=== PATIENT | male | born 2005 | race Caucasian/White ===

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

== ENCOUNTER 2024-06-27 19:57 | Emergency (ER) | payer OTHER ==
--- NOTE | 2024-06-27 20:42 | ED ---
General Adult HPI - General Source: EMS, RN notes reviewed, Caregiver Mode of arrival: wheelchair Limitations: altered mental status <Darleen Samano - Last Filed: 06/28/24 04:05> <Jarred Morel - Last Filed: 06/28/24 10:10> - General Chief complaint: Psychiatric Symptoms Stated complaint: Behavioral Health Time Seen by Provider: 06/27/24 20:40 - History of Present Illness Initial comments: 18-year-old male brought in by EMS with a chief complaint of agitation/altered mental status. Patient has a past medical history significant of autism, schizophrenia and seizure disorder. Majority of HPI and past medical history obtained from [facility] caregiver mailroom supervisor. They state for the past couple of days patient has been extremely excitable and aggressive. They state he has been laughing and jumping and attempting to run out of the facility. They state they have attempted to give as needed medication but patient refuses to take it. They have not been able to redirect patient and he is now been attempting to hurt himself including bleeding, headbutting staff and banging his head on a win mayte and attempts to leave the facility which brought him to the ER today. (Darleen Samano) - Related Data Home Medications Medication Instructions Recorded Confirmed Multivitamins, Thera [Multivitamin 1 tab PO DAILY 02/07/16 12/09/23 (formulary)] Acetaminophen Tab [Tylenol] 500 - 1,000 mg PO Q6HR PRN 11/28/23 12/09/23 Atorvastatin [Lipitor] 20 mg PO HS 11/28/23 12/09/23 Benzoyl Peroxide [Cerave Acne] 1 applic TOPICAL BID 11/28/23 12/09/23 Cannabidiol (Cbd) [Epidiolex] 300 mg PO BID 11/28/23 12/09/23 Cholecalciferol [Vitamin D3 (25 50 mcg PO DAILY 11/28/23 12/09/23 Mcg = 1000 Iu)] Levothyroxine Sodium [Synthroid] 112 mcg PO DAILY 11/28/23 12/09/23 Magnesium Hydroxide [Milk of 2,400 mg PO ONCE PRN 11/28/23 12/09/23 Magnesia] Melatonin 10 mg PO HS 11/28/23 12/09/23 Midazolam [Nayzilam] 5 mg NASAL DIRECTED PRN 11/28/23 12/09/23 Potassium Chloride ER [K-Dur 10] 10 meq PO DAILY 11/28/23 12/09/23 polyethylene glycoL 3350 [Miralax] 17 gm PO DAILY 11/28/23 12/09/23 Docusate [Colace] 100 mg PO BID 12/09/23 12/09/23 Na Phos,M-B/Na Phos,Di-Ba [Fleet 133 ml RECTAL ONCE PRN 12/09/23 12/09/23 Adult] OLANZapine ODT [ZyPREXA ZYDIS] 10 mg PO BID PRN 12/09/23 12/09/23 Paliperidone [Paliperidone ER] 12 mg PO DAILY 12/09/23 12/09/23 Propranolol [Inderal] 20 mg PO BID 12/09/23 12/09/23 guaiFENesin-DM 600/30MG [Mucinex 1 tab PO Q12H PRN 12/09/23 12/09/23 Dm] Previous Rx's Medication Instructions Recorded Lacosamide [Vimpat] 50 mg PO BID #60 tab 11/30/23 Lacosamide [Vimpat] 200 mg PO BID #60 tab 11/30/23 OLANZapine [ZyPREXA] 30 mg PO HS #0 11/30/23 lamoTRIgine [LaMICtal] 100 mg PO DAILY #30 tab 11/30/23 LORazepam [Ativan] 0.5 mg PO TID #0 12/02/23 Allergies Allergy/AdvReac Type Severity Reaction Status Date / Time Sulfa (Sulfonamide Allergy LOWERS WBC Verified 06/27/24 20:20 Antibiotics) lorazepam [From Ativan] AdvReac Severe see Verified 06/27/24 20:20 comments MOTHBALLS Allergy Unknown Uncoded 06/27/24 20:20 Review of Systems ROS Other: All systems not noted in ROS Statement are negative. <Darleen Samano - Last Filed: 06/28/24 04:05> ROS Other: All systems not noted in ROS Statement are negative. <Jarred Morel - Last Filed: 06/28/24 10:10> ROS Statement: Those systems with pertinent positive or pertinent negative responses have been documented in the HPI. Past Medical History Past Medical History: Seizure Disorder Additional Past Medical History / Comment(s): austic, white cell disorder - g6PD, seizure History of Any Multi-Drug Resistant Organisms: None Reported Past Surgical History: Cholecystectomy Additional Past Surgical History / Comment(s): DENTAL SURGERY Past Anesthesia/Blood Transfusion Reactions: No Reported Reaction Past Psychological History: ADD/ADHD, Schizophrenia Smoking Status: Never smoker Past Alcohol Use History: None Reported Past Drug Use History: None Reported <Darleen Samano - Last Filed: 06/28/24 04:05> General Exam Limitations: altered mental status General appearance: alert, in no apparent distress Head exam: Present: atraumatic, normocephalic, normal inspection Eye exam: Present: normal appearance, PERRL, EOMI. Absent: scleral icterus, conjunctival injection, periorbital swelling Pupils: Present: normal accommodation ENT exam: Present: normal exam, normal oropharynx, mucous membranes moist Neck exam: Present: normal inspection. Absent: tenderness, meningismus, lymphadenopathy Respiratory exam: Present: normal lung sounds bilaterally. Absent: respiratory distress, wheezes, rales, rhonchi, stridor Cardiovascular Exam: Present: regular rate, normal rhythm, normal heart sounds. Absent: systolic murmur, diastolic murmur, rubs, gallop, clicks GI/Abdominal exam: Present: soft, normal bowel sounds. Absent: distended, tenderness, guarding, rebound, rigid Extremities exam: Present: normal inspection, full ROM, normal capillary refill. Absent: tenderness, pedal edema, joint swelling, calf tenderness Neurological exam: Present: alert Skin exam: Present: warm, dry, intact, normal color. Absent: rash <Darleen Samano - Last Filed: 06/28/24 04:05> Course Vital Signs 06/27/24 06/27/24 06/28/24 20:00 20:15 06:26 Pulse Rate 100 104 H Respiratory 17 16 16 Rate Blood Pressure 123/69 126/72 128/78 O2 Sat by Pulse 98 95 96 Oximetry Medical Decision Making - Lab Data Result diagrams: 06/27/24 21:28 06/27/24 21:28 - Radiology Data Radiology results: report reviewed, image reviewed <Darleen Samano - Last Filed: 06/28/24 04:05> - Lab Data Result diagrams: 06/27/24 21:28 06/27/24 21:28 <Jarred Morel - Last Filed: 06/28/24 10:10> - Medical Decision Making Was pt. sent in by a medical professional or institution (EBONIE Cormier, HOSPITAL LABORATORY TECHNICIAN, urgent care, hospital, or alf...) When possible be specific @ -alf for evaluation of agression and head injury. Did you speak to anyone other than the patient for history (EMS, parent, family, police, friend...)? What history was obtained from this source @ -Yes [facility] provided HPI in its entirety. Did you review nursing and triage notes (agree or disagree)? Why? @ -I reviewed and agree with nursing and triage notes Were old charts reviewed (outside hosp., previous admission, EMS record, old EKG, old radiological studies, urgent care reports/EKG's, alf records)? Report findings @ -No old charts were reviewed Differential Diagnosis (chest pain, altered mental status, abdominal pain women, abdominal pain men, vaginal bleeding, weakness, fever, dyspnea, syncope, headache, dizziness, GI bleed, back pain, seizure, CVA, palpatations, mental health, musculoskeletal)? @ -Differential Altered Mental Status: Hypoglycemia, DKA, hypercapnia, ETOH, overdose, CO poisoning, trauma, myxedema coma, HTN encephalopathy, infection, encephalitis, psychosis, intercranial hemorrhage, hepatic encephalopathy, meningitis, CVA, this is not meant to be an all-inclusive list EKG interpreted by me (3pts min.). @ -None X-rays interpreted by me (1pt min.). @ -None done CT interpreted by me (1pt min.). @ -CT brain negative for acute intracranial process, fractures or dislocations. U/S interpreted by me (1pt. min.). @ -None done What testing was considered but not performed or refused? (CT, X-rays, U/S, labs)? Why? @ -None What meds were considered but not given or refused? Why? @ -None Did you discuss the management of the patient with other professionals (professionals i.e. EBONIE Cormier, HOSPITAL LABORATORY TECHNICIAN, lab, RT, psych nurse, social media manager, student, teacher, control officer manager, case management associate)? Give summary @ -No Was smoking cessation discussed for >3mins.? @ -No Was critical care preformed (if so, how long)? @ -No Were there social determinants of health that impacted care today? How? (Homelessness, low income, unemployed, alcoholism, drug addiction, transportation, low edu. Level, literacy, decrease access to med. care, custodial, rehab)? @ -Patient currently residing at [facility] Was there de-escalation of care discussed even if they declined (Discuss DNR or withdrawal of care, Hospice)? DNR status @ -No What co-morbidities impacted this encounter? (DM, HTN, Smoking, COPD, CAD, Cancer, CVA, ARF, Chemo, Hep., AIDS, mental health diagnosis, sleep apnea, morbid obesity)? @ -Autism/schizophrenia Was patient admitted / discharged? Hospital course, mention meds given and route, prescriptions, significant lab abnormalities, going to OR and other pertinent info. @ -18-year-old male presented to ER via EMS with a chief complaint of altered mental status. HPI is provided entirely by group marketing vp. History and physical exam completed. Vitals stable. Patient in no signs of acute distress and nontoxic-appearing. Exam unremarkable. CT brain performed due to [facility] staff reporting patient was banging his head against windows today. CT is negative for acute process. Laboratory studies obtained remarkable for a macrocytic anemia hemoglobin 12.6 otherwise unremarkable. Patient medically cleared for EPS evaluation. (Darleen Samano) Was patient admitted / discharged? Hospital course, mention meds given and route, prescriptions, significant lab abnormalities, going to OR and other pertinent info. @ -Patient was signed out to me by Dr. Anderson at 7 AM. Patient was evaluated by EPS and was determined that with a safety plan patient could be discharged home. Undiagnosed new problem with uncertain prognosis? @ -No Drug Therapy requiring intensive monitoring for toxicity (Heparin, Nitro, Insulin, Cardizem)? @ -No Were any procedures done? @ -No Diagnosis/symptom? @ -Increased agitation Acute, or Chronic, or Acute on Chronic? @ -Acute Uncomplicated (without systemic symptoms) or Complicated (systemic symptoms)? @ -Complicated Side effects of treatment? @ -No Exacerbation, Progression, or Severe Exacerbation? @ -No Poses a threat to life or bodily function? How? (Chest pain, [place], [place], pneumonia, PE, COPD, DKA, ARF, appy, cholecystitis, CVA, Diverticulitis, Homicidal, Suicidal, threat to staff... and all critical care pts) @ -No (Jarred Morel) - Lab Data Lab Results 06/27/24 06/27/24 Range/Units 21:28 21:28 WBC 5.6 (4.0-11.0) k/uL RBC 3.49 L (4.30-5.90) m/uL Hgb 12.6 L (13.0-17.5) gm/dL Hct 37.6 L (39.0-53.0) % MCV 107.7 H (80.0-100.0) fL MCH 35.9 H (25.0-35.0) pg MCHC 33.4 (31.0-37.0) g/dL RDW 11.0 L (11.5-15.5) % Plt Count 188 (150-450) k/uL MPV 7.8 Neutrophils % 57 % Lymphocytes % 31 % Monocytes % 6 % Eosinophils % 4 % Basophils % 1 % Neutrophils # 3.2 (1.3-7.7) k/uL Lymphocytes # 1.7 (1.0-4.8) k/uL Monocytes # 0.4 (0-1.0) k/uL Eosinophils # 0.2 (0-0.7) k/uL Basophils # 0.0 (0-0.2) k/uL Macrocytosis Slight Sodium 138 (137-145) mmol/L Potassium 4.1 (3.5-5.1) mmol/L Chloride 105 (98-107) mmol/L Carbon Dioxide 21 L (22-30) mmol/L Anion Gap 12 mmol/L BUN 12 (9-20) mg/dL Creatinine 0.49 L (0.66-1.25) mg/dL Est GFR (CKD-EPI)AfAm >90 (>60 ml/min/1.73 sqM) Est GFR (CKD-EPI)NonAf >90 (>60 ml/min/1.73 sqM) Glucose 95 (74-99) mg/dL Calcium 9.7 (8.4-10.2) mg/dL Total Bilirubin 2.8 H (0.2-1.3) mg/dL AST 33 (17-59) U/L ALT 22 (4-49) U/L Alkaline Phosphatase 99 (38-126) U/L Total Protein 7.4 (6.3-8.2) g/dL Albumin 4.6 (3.5-5.0) g/dL Disposition <Darleen Samano - Last Filed: 06/28/24 04:05> Is patient prescribed a controlled substance at d/c from ED?: No Time of Disposition: 10:10 <Jarred Morel - Last Filed: 06/28/24 10:10> Clinical Impression: Restlessness and agitation Disposition: HOME SELF-CARE Referrals: Sammy Pope MD [Primary Care Provider] - 1-2 days
[2024-06-27 21:36] LABS: Basophils % (A) 1 %; Eosinophils # (A) 0.2 k/uL (0-0.7); Eosinophils % (A) 4 %; HCT 37.6 % (39.0-53.0); HGB 12.6 gm/dL (13.0-17.5); Lymphocytes # (A) 1.7 k/uL (1.0-4.8); Lymphocytes % (A) 31 %; MCH 35.9 pg (25.0-35.0); MCHC 33.4 g/dL (31.0-37.0); MCV 107.7 fL (80.0-100.0); Macrocytosis Slight; Mean Platelet Volume 7.8; Monocytes # (A) 0.4 k/uL (0-1.0); Monocytes % (A) 6 %; Neutrophils # (A) 3.2 k/uL (1.3-7.7); Neutrophils % (A) 57 %; Platelet Count 188 k/uL (150-450); RBC 3.49 m/uL (4.30-5.90); WBC 5.6 k/uL (4.0-11.0)
[2024-06-27 21:54] LABS: ALT 22 U/L (4-49); AST 33 U/L (17-59); African American GFR (CKD) >90 (>60 ml/min/1.73 sqM); Albumin 4.6 g/dL (3.5-5.0); Alkaline Phosphatase 99 U/L (38-126); Anion Gap 12 mmol/L; Blood Urea Nitrogen 12 mg/dL (9-20); Calcium 9.7 mg/dL (8.4-10.2); Carbon Dioxide 21 mmol/L (22-30); Chloride 105 mmol/L (98-107); Glucose 95 mg/dL (74-99); Non-African American GFR(CKD) >90 (>60 ml/min/1.73 sqM); Potassium 4.1 mmol/L (3.5-5.1); Sodium 138 mmol/L (137-145); Total Bilirubin 2.8 mg/dL (0.2-1.3); Total Protein 7.4 g/dL (6.3-8.2)
--- NOTE | 2024-06-27 21:58 | CT ---
EXAMINATION TYPE: CT brain wo con CT DLP: 1256.4 mGycm, Automated exposure control for dose reduction was used. DATE OF EXAM: 06/27/2024 9:41 PM COMPARISON: 06/29/2015. CLINICAL INDICATION:Male, 18 years old with history of head injury, Head injury. TECHNIQUE: Brain: Axial CT images of the brain were obtained with coronal and sagittal reformats created and rev iewed. Contrast used: None. Oral contrast used: None. FINDINGS: Extra-axial spaces: No abnormal extra-axial fluid collections. Basilar cisterns are patent. Ventricular system: Within normal limits. Cerebral parenchyma: No increased attenuation to suggest acute intraparenchymal hemorrhage. The gra y-white matter interface appears maintained. No significant atrophy. White matter unremarkable by C T. Cerebellum: No acute abnormality. Mass effect: No evidence of mass effect or midline shift. Intracranial vasculature: Unremarkable Soft tissues: No acute or concerning abnormality. Visualized orbits: Orbital contents appear grossly intact. Calvarium/osseous structures: No evidence of calvarial fracture. Paranasal sinuses and mastoid air cells: Small polypoid mucosal thickening in the bilateral sphenoid sinuses. Mild mucosal thickening in the bilateral maxillary sinuses. Mastoid air cells are clear. Other: Rotational changes in the upper cervical region, likely positional. MRI is more sensitive for detecting acute processes such as infarct, and may be considered if clinica lly warranted. IMPRESSION: No acute intracranial CT abnormality.
[2024-06-28 03:52] VITALS: RESP 16
[2024-06-28 11:20] VITALS: BP 121/70; PULSE 81; TEMP 98.1
== END 2024-06-28 11:18 | disposition home or self-care (01) ==
LOC: EC 19:57
DX: R45.1 Restlessness and agitation (principal); R41.82 Altered mental status, unspecified; D53.9 Nutritional anemia, unspecified; F84.0 Autistic disorder; F20.9 Schizophrenia, unspecified
CPT/HCPCS: 36415; 70450; 80053; 85025; 99285

== ENCOUNTER 2024-06-28 22:51 | Emergency (ER) | payer OTHER ==
[2024-06-28 23:01] VITALS: RESP 16; TEMP 97.5
--- NOTE | 2024-06-28 23:09 | ED ---
Seizure HPI - General Chief Complaint: Seizure Stated Complaint: Seizure Time Seen by Provider: 06/28/24 22:55 Source: patient, EMS Mode of arrival: EMS - History of Present Illness Initial Comments: Octaviano is a 18yo M with history of seizure disorder who was in our hospital yesterday for psychiatric evaluation he had a thorough workup including blood work and head CT during his time in the ER he did miss some doses of his antiepileptic. He was cleared by psychiatric services today return to his assisted he had seizures this afternoon was brought back to the ER received an IV dose of antiepileptics and was subsequently discharged back to his assisted. He again had a seizure this evening that resolved with the magnetic swipe of his nerve stimulator but per policy assisted brought him back here for reevaluation. Upon arrival patient is awake alert oriented with no complaints. Caregiver from assisted confirms he did receive his evening and bedtime doses of medications today - Related Data Home Medications Medication Instructions Recorded Confirmed Multivitamins, Thera [Multivitamin 1 tab PO DAILY 02/07/16 12/09/23 (formulary)] Acetaminophen Tab [Tylenol] 500 - 1,000 mg PO Q6HR PRN 11/28/23 12/09/23 Atorvastatin [Lipitor] 20 mg PO HS 11/28/23 12/09/23 Benzoyl Peroxide [Cerave Acne] 1 applic TOPICAL BID 11/28/23 12/09/23 Cannabidiol (Cbd) [Epidiolex] 300 mg PO BID 11/28/23 12/09/23 Cholecalciferol [Vitamin D3 (25 50 mcg PO DAILY 11/28/23 12/09/23 Mcg = 1000 Iu)] Levothyroxine Sodium [Synthroid] 112 mcg PO DAILY 11/28/23 12/09/23 Magnesium Hydroxide [Milk of 2,400 mg PO ONCE PRN 11/28/23 12/09/23 Magnesia] Melatonin 10 mg PO HS 11/28/23 12/09/23 Midazolam [Nayzilam] 5 mg NASAL DIRECTED PRN 11/28/23 12/09/23 Potassium Chloride ER [K-Dur 10] 10 meq PO DAILY 11/28/23 12/09/23 polyethylene glycoL 3350 [Miralax] 17 gm PO DAILY 11/28/23 12/09/23 Docusate [Colace] 100 mg PO BID 12/09/23 12/09/23 Na Phos,M-B/Na Phos,Di-Ba [Fleet 133 ml RECTAL ONCE PRN 12/09/23 12/09/23 Adult] OLANZapine ODT [ZyPREXA ZYDIS] 10 mg PO BID PRN 12/09/23 12/09/23 Paliperidone [Paliperidone ER] 12 mg PO DAILY 12/09/23 12/09/23 Propranolol [Inderal] 20 mg PO BID 12/09/23 12/09/23 guaiFENesin-DM 600/30MG [Mucinex 1 tab PO Q12H PRN 12/09/23 12/09/23 Dm] Previous Rx's Medication Instructions Recorded Lacosamide [Vimpat] 50 mg PO BID #60 tab 11/30/23 Lacosamide [Vimpat] 200 mg PO BID #60 tab 11/30/23 OLANZapine [ZyPREXA] 30 mg PO HS #0 11/30/23 lamoTRIgine [LaMICtal] 100 mg PO DAILY #30 tab 11/30/23 LORazepam [Ativan] 0.5 mg PO TID #0 12/02/23 Allergies Allergy/AdvReac Type Severity Reaction Status Date / Time Sulfa (Sulfonamide Allergy LOWERS WBC Verified 06/28/24 15:51 Antibiotics) lorazepam [From Ativan] AdvReac Severe see Verified 06/28/24 15:51 comments MOTHBALLS Allergy Unknown Uncoded 06/28/24 15:51 Review of Systems ROS Statement: Those systems with pertinent positive or pertinent negative responses have been documented in the HPI. ROS Other: All systems not noted in ROS Statement are negative. Past Medical History Past Medical History: Seizure Disorder Additional Past Medical History / Comment(s): austic, white cell disorder - g6PD, seizure History of Any Multi-Drug Resistant Organisms: None Reported Past Surgical History: Cholecystectomy Additional Past Surgical History / Comment(s): DENTAL SURGERY Past Anesthesia/Blood Transfusion Reactions: No Reported Reaction Past Psychological History: ADD/ADHD, Schizophrenia Smoking Status: Never smoker Past Alcohol Use History: None Reported Past Drug Use History: None Reported General Exam - General Exam Comments Initial Comments: Physical Exam GENERAL: Patient is well-developed and well-nourished Patient is nontoxic and well-hydrated and is in no distress HENT: Normocephalic, Atraumatic EYES: PERRL, EOMI PULMONARY: Unlabored respirations CARDIOVASCULAR: RRR Warm and well perfused extremities ABDOMEN: Non-distended SKIN: No rashes or bruising : Deferred NEUROLOGIC: Alert and oriented Normal speech Normal gait MUSCULOSKELETAL: Moving all extremities with no apparent injury PSYCHIATRIC: No SI/HI Course Vital Signs 06/28/24 22:54 Temperature 97.5 F L Pulse Rate 74 Respiratory 16 Rate Blood Pressure 119/60 O2 Sat by Pulse 97 Oximetry Medical Decision Making - Medical Decision Making Was pt. sent in by a medical professional or institution (, PA, ASSEMBLY LOADER, urgent care, hospital, or fdc...) When possible be specific @ sent from assisted Did you speak to anyone other than the patient for history (EMS, parent, family, police, friend...)? What history was obtained from this source @ -EMS Did you review nursing and triage notes (agree or disagree)? Why? @ -I reviewed and agree with nursing and triage notes Were old charts reviewed (outside hosp., previous admission, EMS record, old EKG, old radiological studies, urgent care reports/EKG's, fdc records)? Report findings @ -Previous ER visits and labs were reviewed Differential Diagnosis (chest pain, altered mental status, abdominal pain women, abdominal pain men, vaginal bleeding, weakness, fever, dyspnea, syncope, headache, dizziness, GI bleed, back pain, seizure, CVA, palpatations, mental health)? @ -Differential Seizure: Recurrent seizure disorder, febrile seizure, alcohol withdrawal, stimulants, meningitis, encephalitis, intercranial hemorrhage, intracranial tumor, stroke, eclampsia, thyrotoxicosis, hypocalcemia, hyponatremia, hypernatremia, hypomagnesemia, psychogenic, this is not meant to be an all-inclusive list. EKG interpreted by me (3pts min.). @ -As above X-rays interpreted by me (1pt min.). @ -None done CT interpreted by me (1pt min.). @ -None done U/S interpreted by me (1pt. min.). @ -None done What testing was considered but not performed or refused? (CT, X-rays, U/S, labs)? Why? @ -None What meds were considered but not given or refused? Why? @ -None Did you discuss the management of the patient with other professionals (professionals i.e. , PA, ASSEMBLY LOADER, lab, RT, psych nurse, older adult social work specialist, dealmaker, teacher, state wildlife officer, binder caser)? Give summary @ -No Was smoking cessation discussed for >3mins.? @ -No Was critical care preformed (if so, how long)? @ -No Were there social determinants of health that impacted care today? How? (Homelessness, low income, unemployed, alcoholism, drug addiction, transportation, low edu. Level, literacy, decrease access to med. care, alf, rehab)? @ -No Was there de-escalation of care discussed even if they declined (Discuss DNR or withdrawal of care, Hospice)? DNR status @ -No What co-morbidities impacted this encounter? (DM, HTN, Smoking, COPD, CAD, Cancer, CVA, ARF, Chemo, Hep., AIDS, mental health diagnosis, sleep apnea, morbid obesity)? @ -None Was patient admitted / discharged? Hospital course, mention meds given and route, prescriptions, significant lab abnormalities, going to OR and other pertinent info. @ -Discharged The patient was seen and evaluated history is obtained from patient, EMS and caregiver from assisted. Patient with a long history of drug-resistant ep ilepsy and missed multiple doses of his antiepileptics and has had recurrent seizures today, upon arrival he is awake alert and oriented he is not in status not seizing. Discussed with the assisted that he should continue his usual medications uses nerve stimulator as needed for seizures return with any new or concerning symptoms seizure lasting longer than 5 minutes or greater than 2 seizures per hour. Undiagnosed new problem with uncertain prognosis? @ -No Drug Therapy requiring intensive monitoring for toxicity (Heparin, Nitro, Insulin, Cardizem)? @ -No Were any procedures done? @ -No Diagnosis/symptom? @ -Seizure Acute, or Chronic, or Acute on Chronic? @ -Default Uncomplicated (without systemic symptoms) or Complicated (systemic symptoms)? @ -Default Side effects of treatment? @ -No Exacerbation, Progression, or Severe Exacerbation? @ -No Poses a threat to life or bodily function? How? (Chest pain, [place], [place], pneumonia, PE, COPD, DKA, ARF, appy, cholecystitis, CVA, Diverticulitis, Homicidal, Suicidal, threat to staff... and all critical care pts) @ -No Disposition Clinical Impression: Epileptic seizure, generalized Disposition: HOME SELF-CARE Condition: Stable Instructions (If sedation given, give patient instructions): Seizure/Epilepsy Discharge Instructions & Follow-Up Is patient prescribed a controlled substance at d/c from ED?: No Referrals: Sammy Pope MD [Primary Care Provider] - 1-2 days
[2024-06-29 00:08] VITALS: BP 115/50; PULSE 62
== END 2024-06-29 00:07 | disposition home or self-care (01) ==
LOC: EC 22:51
DX: G40.409 Other generalized epilepsy and epileptic syndromes, not intractable, without status epilepticus (principal); Z88.1 Allergy status to other antibiotic agents; Z88.2 Allergy status to sulfonamides; Z88.8 Allergy status to other drugs, medicaments and biological substances; Z90.49 Acquired absence of other specified parts of digestive tract
CPT/HCPCS: 99283

== ENCOUNTER 2024-09-27 18:17 | Emergency (ER) | payer OTHER ==
--- NOTE | 2024-09-27 18:20 | ED ---
Psych HPI - General Stated Complaint: Psych evaluation Time Seen by Provider: 09/27/24 18:20 Source: police, RN notes reviewed, old records reviewed Mode of arrival: EMS Limitations: no limitations - History of Present Illness Initial Comments: This is a 18-year-old male to the ER for evaluation today. Patient presents today for evaluation regards to psychiatric illness with police, patient is history of autism and not participating in history of present illness Per history patient is brought in for combativeness at [facility] MD Complaint: altered mental status -: unknown Associated Psychiatric Symptoms: none Quality: constant Improves With: none Worsens With: none Associated Symptoms: denies other symptoms Treatments Prior to Arrival: placed on mental health hold If Self Harm: admits thoughts of self harm - Related Data Home Medications Medication Instructions Recorded Confirmed Multivitamins, Thera [Multivitamin 1 tab PO DAILY 02/07/16 12/09/23 (formulary)] Acetaminophen Tab [Tylenol] 500 - 1,000 mg PO Q6HR PRN 11/28/23 12/09/23 Atorvastatin [Lipitor] 20 mg PO HS 11/28/23 12/09/23 Benzoyl Peroxide [Cerave Acne] 1 applic TOPICAL BID 11/28/23 12/09/23 Cannabidiol (Cbd) [Epidiolex] 300 mg PO BID 11/28/23 12/09/23 Cholecalciferol [Vitamin D3 (25 50 mcg PO DAILY 11/28/23 12/09/23 Mcg = 1000 Iu)] Levothyroxine Sodium [Synthroid] 112 mcg PO DAILY 11/28/23 12/09/23 Magnesium Hydroxide [Milk of 2,400 mg PO ONCE PRN 11/28/23 12/09/23 Magnesia] Melatonin 10 mg PO HS 11/28/23 12/09/23 Midazolam [Nayzilam] 5 mg NASAL DIRECTED PRN 11/28/23 12/09/23 Potassium Chloride ER [K-Dur 10] 10 meq PO DAILY 11/28/23 12/09/23 polyethylene glycoL 3350 [Miralax] 17 gm PO DAILY 11/28/23 12/09/23 Docusate [Colace] 100 mg PO BID 12/09/23 12/09/23 Na Phos,M-B/Na Phos,Di-Ba [Fleet 133 ml RECTAL ONCE PRN 12/09/23 12/09/23 Adult] OLANZapine ODT [ZyPREXA ZYDIS] 10 mg PO BID PRN 12/09/23 12/09/23 Paliperidone [Paliperidone ER] 12 mg PO DAILY 12/09/23 12/09/23 Propranolol [Inderal] 20 mg PO BID 12/09/23 12/09/23 guaiFENesin-DM 600/30MG [Mucinex 1 tab PO Q12H PRN 12/09/23 12/09/23 Dm] Previous Rx's Medication Instructions Recorded Lacosamide [Vimpat] 50 mg PO BID #60 tab 11/30/23 Lacosamide [Vimpat] 200 mg PO BID #60 tab 11/30/23 OLANZapine [ZyPREXA] 30 mg PO HS #0 11/30/23 lamoTRIgine [LaMICtal] 100 mg PO DAILY #30 tab 11/30/23 LORazepam [Ativan] 0.5 mg PO TID #0 12/02/23 Allergies Allergy/AdvReac Type Severity Reaction Status Date / Time Sulfa (Sulfonamide Allergy LOWERS WBC Verified 06/28/24 15:51 Antibiotics) lorazepam [From Ativan] AdvReac Severe see Verified 06/28/24 15:51 comments MOTHBALLS Allergy Unknown Uncoded 06/28/24 15:51 Review of Systems ROS Statement: Those systems with pertinent positive or pertinent negative responses have been documented in the HPI. ROS Other: All systems not noted in ROS Statement are negative. Past Medical History Past Medical History: Seizure Disorder Additional Past Medical History / Comment(s): austic, white cell disorder - g6PD, seizure History of Any Multi-Drug Resistant Organisms: None Reported Past Surgical History: Cholecystectomy Additional Past Surgical History / Comment(s): DENTAL SURGERY Past Anesthesia/Blood Transfusion Reactions: No Reported Reaction Past Psychological History: ADD/ADHD, Schizophrenia Smoking Status: Never smoker Past Alcohol Use History: None Reported Past Drug Use History: None Reported General Exam General appearance: alert, in no apparent distress Head exam: Present: atraumatic, normocephalic, normal inspection Eye exam: Present: normal appearance, PERRL, EOMI. Absent: scleral icterus, conjunctival injection, periorbital swelling ENT exam: Present: normal exam, mucous membranes moist Neck exam: Present: normal inspection. Absent: tenderness, meningismus, lymphadenopathy Respiratory exam: Present: normal lung sounds bilaterally. Absent: respiratory distress, wheezes, rales, rhonchi, stridor Cardiovascular Exam: Present: regular rate, normal rhythm, normal heart sounds. Absent: systolic murmur, diastolic murmur, rubs, gallop, clicks GI/Abdominal exam: Present: soft, normal bowel sounds. Absent: distended, tenderness, guarding, rebound, rigid Extremities exam: Present: normal inspection, full ROM, normal capillary refill. Absent: tenderness, pedal edema, joint swelling, calf tenderness Back exam: Present: normal inspection Neurological exam: Present: alert, oriented X3, CN II-XII intact Psychiatric exam: Present: normal affect, normal mood Skin exam: Present: warm, dry, intact, normal color. Absent: rash Course Vital Signs 09/27/24 09/27/24 18:20 21:43 Temperature 98.8 F 97.6 F Pulse Rate 83 86 Respiratory 16 16 Rate Blood Pressure 139/64 121/53 O2 Sat by Pulse 100 98 Oximetry - Reevaluation(s) Reevaluation #1: 09/27/24 18:30 Medical records reviewed Reevaluation #2: 09/27/24 18:30 Medical cleared for psychiatric evaluation Reevaluation #3: Differential Mental Health Depression, anxiety, bipolar, psychosis, schizophrenia, borderline personality, situational depression, adjustment disorder, behavioral disorder, brain tumor, malingering, substance abuse, encephalopathy, medication reaction, dementia, hypothyroidism, degenerative neurologic disorder, lupus.... This is not meant to be all-inclusive list Medical Decision Making - Medical Decision Making 18 male seen eval for psychiatry, patient can be discharged home Disposition Clinical Impression: Psychosis, Mood disorder Disposition: HOME SELF-CARE Condition: Good Instructions (If sedation given, give patient instructions): Mood Disorders (ED) Is patient prescribed a controlled substance at d/c from ED?: No Referrals: Sammy Pope MD [Primary Care Provider] - 1-2 days Time of Disposition: 21:10
[2024-09-27 18:24] VITALS: RESP 16
[2024-09-27 21:46] VITALS: BP 121/53; PULSE 86; TEMP 97.6
== END 2024-09-27 21:53 | disposition home or self-care (01) ==
LOC: EC 18:17
DX: F29 Unspecified psychosis not due to a substance or known physiological condition (principal); F39 Unspecified mood [affective] disorder; Z88.1 Allergy status to other antibiotic agents; Z88.2 Allergy status to sulfonamides; Z88.8 Allergy status to other drugs, medicaments and biological substances
CPT/HCPCS: 82075; 99285

== ENCOUNTER 2024-11-02 09:22 | Emergency (ER) | payer OTHER ==
[2024-11-02 09:37] VITALS: RESP 16; TEMP 97.6
--- NOTE | 2024-11-02 10:40 | ED ---
General Adult HPI - General Chief complaint: Psychiatric Symptoms Stated complaint: Mental health eval Time Seen by Provider: 11/02/24 09:29 Source: EMS, RN notes reviewed Mode of arrival: EMS Limitations: language barrier - History of Present Illness Initial comments: 18-year-old male presents to the emergency department for evaluation of aggression at his living facility. Patient was brought in by EMS. He was reported to be aggressive to staff at the facility he lives in. Patient is cooperative in the ED. Patient unable to provide any history which is baseline for the patient. - Related Data Home Medications Medication Instructions Recorded Confirmed Multivitamins, Thera [Multivitamin 1 tab PO DAILY 02/07/16 11/02/24 (formulary)] Acetaminophen Tab [Tylenol] 500 - 1,000 mg PO Q6HR PRN 11/28/23 11/02/24 Atorvastatin [Lipitor] 20 mg PO HS 11/28/23 11/02/24 Benzoyl Peroxide [Cerave Acne] 1 applic TOPICAL BID 11/28/23 11/02/24 Cannabidiol (Cbd) [Epidiolex] 300 mg PO TID 11/28/23 11/02/24 Cholecalciferol [Vitamin D3 (25 50 mcg PO DAILY 11/28/23 11/02/24 Mcg = 1000 Iu)] Magnesium Hydroxide [Milk of 1,200 - 2,400 mg PO DAILY PRN 11/28/23 11/02/24 Magnesia] Midazolam [Nayzilam] 5 mg NASAL DIRECTED PRN 11/28/23 11/02/24 polyethylene glycoL 3350 [Miralax] 17 gm PO DAILY PRN 11/28/23 11/02/24 Propranolol [Inderal] 20 mg PO BID-W/MEALS 12/09/23 11/02/24 Benzonatate [Tessalon Perle] 200 mg PO TID PRN 11/02/24 11/02/24 Fluoride (Sodium) [Sodium Fluoride] 1 applic DENTAL HS 11/02/24 11/02/24 LORazepam [Ativan] 1 mg PO TID 11/02/24 11/02/24 Levothyroxine Sodium [Synthroid] 75 mcg PO DAILY 11/02/24 11/02/24 Melatonin 10 mg PO HS 11/02/24 11/02/24 Metoclopramide [Reglan] 10 mg PO DAILY@1630 11/02/24 11/02/24 OLANZapine ODT [ZyPREXA ZYDIS] 5 mg PO BID PRN 11/02/24 11/02/24 Omeprazole 20 mg PO DAILY 11/02/24 11/02/24 Potassium Chloride ER [K-Dur 20] 20 meq PO DAILY 11/02/24 11/02/24 chlorproMAZINE HCL [Thorazine] 50 mg PO BID@0800,1630 11/02/24 11/02/24 chlorproMAZINE [Thorazine] 100 mg PO TID PRN 11/02/24 11/02/24 diphenhydrAMINE [Benadryl] 50 mg PO HS 11/02/24 11/02/24 lamoTRIgine [lamoTRIgine ER] 50 mg PO DAILY 11/02/24 11/02/24 lamoTRIgine [lamoTRIgine ER] 300 mg PO DAILY 11/02/24 11/02/24 risperiDONE 4 mg PO BID 11/02/24 11/02/24 Previous Rx's Medication Instructions Recorded Lacosamide [Vimpat] 200 mg PO BID #60 tab 11/30/23 Allergies Allergy/AdvReac Type Severity Reaction Status Date / Time Sulfa (Sulfonamide Allergy LOWERS WBC Verified 11/02/24 10:31 Antibiotics) lorazepam [From Ativan] AdvReac Severe see Verified 11/02/24 10:31 comments MOTHBALLS Allergy Unknown Uncoded 11/02/24 10:31 Review of Systems ROS Statement: Those systems with pertinent positive or pertinent negative responses have been documented in the HPI. ROS Other: All systems not noted in ROS Statement are negative. Past Medical History Past Medical History: Hypertension, Seizure Disorder Additional Past Medical History / Comment(s): austism, white cell disorder - g6PD, seizure hx grand mal/absence, chronic constipation History of Any Multi-Drug Resistant Organisms: None Reported Past Surgical History: Cholecystectomy Additional Past Surgical History / Comment(s): DENTAL SURGERY Past Anesthesia/Blood Transfusion Reactions: No Reported Reaction Past Psychological History: ADD/ADHD, Schizophrenia Smoking Status: Never smoker Past Alcohol Use History: None Reported Past Drug Use History: None Reported General Exam Limitations: no limitations General appearance: alert, in no apparent distress Head exam: Present: atraumatic, normocephalic, normal inspection Eye exam: Present: normal appearance, PERRL, EOMI. Absent: scleral icterus, conjunctival injection, periorbital swelling ENT exam: Present: normal exam, mucous membranes moist Respiratory exam: Present: normal lung sounds bilaterally. Absent: respiratory distress, wheezes, rales, rhonchi, stridor Cardiovascular Exam: Present: regular rate, normal rhythm, normal heart sounds. Absent: systolic murmur, diastolic murmur, rubs, gallop, clicks Extremities exam: Present: normal inspection, full ROM, normal capillary refill. Absent: tenderness, pedal edema, joint swelling, calf tenderness Back exam: Present: normal inspection Neurological exam: Present: alert, oriented X3 Psychiatric exam: Present: normal affect, normal mood Skin exam: Present: warm, dry, intact, normal color. Absent: rash Course Vital Signs 11/02/24 09:30 Temperature 97.6 F Pulse Rate 79 Respiratory 16 Rate Blood Pressure 124/79 O2 Sat by Pulse 98 Oximetry Medical Decision Making - Medical Decision Making Was pt. sent in by a medical professional or institution (, PA, APPRENTICE ELECTRICIAN, urgent care, hospital, or fdc...) When possible be specific @ -[No] Did you speak to anyone other than the patient for history (EMS, parent, family, police, friend...)? What history was obtained from this source @ -[No] Did you review nursing and triage notes (agree or disagree)? Why? @ -[I reviewed and agree with nursing and triage notes] Were old charts reviewed (outside hosp., previous admission, EMS record, old EKG, old radiological studies, urgent care reports/EKG's, fdc records)? Report findings @ -[No old charts were reviewed] Differential Diagnosis (chest pain, altered mental status, abdominal pain women, abdominal pain men, vaginal bleeding, weakness, fever, dyspnea, syncope, headache, dizziness, GI bleed, back pain, seizure, CVA, palpatations, mental health, musculoskeletal)? @ -[not applicable] EKG interpreted by me (3pts min.). @ -[As above] X-rays interpreted by me (1pt min.). @ -[None done] CT interpreted by me (1pt min.). @ -[None done] U/S interpreted by me (1pt. min.). @ -[None done] What testing was considered but not performed or refused? (CT, X-rays, U/S, labs)? Why? @ -[None] What meds were considered but not given or refused? Why? @ -[None] Did you discuss the management of the patient with other professionals (professionals i.e. , PA, APPRENTICE ELECTRICIAN, lab, RT, psych nurse, social services analyst, supervisor joiners, teacher, evp and chief operating officer, manager rn case)? Give summary @ -[No] Was smoking cessation discussed for >3mins.? @ -[No] Was critical care preformed (if so, how long)? @ -[No] Were there social determinants of health that impacted care today? How? (Homelessness, low income, unemployed, alcoholism, drug addiction, transportation, low edu. Level, literacy, decrease access to med. care, residential, rehab)? @ -[No] Was there de-escalation of care discussed even if they declined (Discuss DNR or withdrawal of care, Hospice)? DNR status @ -[No] What co-morbidities impacted this encounter? (DM, HTN, Smoking, COPD, CAD, Cancer, CVA, ARF, Chemo, Hep., AIDS, mental health diagnosis, sleep apnea, morbid obesity)? @ -[None] Was patient admitted / discharged? Hospital course, mention meds given and route, prescriptions, significant lab abnormalities, going to OR and other pertinent info. @ -[hospital course] Undiagnosed new problem with uncertain prognosis? @ -[No] Drug Therapy requiring intensive monitoring for toxicity (Heparin, Nitro, Insulin, Cardizem)? @ -[No] Were any procedures done? @ -[No] Diagnosis/symptom? @ -[default] Acute, or Chronic, or Acute on Chronic? @ -[default] Uncomplicated (without systemic symptoms) or Complicated (systemic symptoms)? @ -[default] Side effects of treatment? @ -[No] Exacerbation, Progression, or Severe Exacerbation? @ -[No] Poses a threat to life or bodily function? How? (Chest pain, [place], [place], pneumonia, PE, COPD, DKA, ARF, appy, cholecystitis, CVA, Diverticulitis, Homicidal, Suicidal, threat to staff... and all critical care pts) @ -[No] Disposition Clinical Impression: Agitation Disposition: HOME SELF-CARE Condition: Stable Instructions (If sedation given, give patient instructions): Stress (ED), Anxiety (ED) Is patient prescribed a controlled substance at d/c from ED?: No Referrals: Sammy Pope MD [Primary Care Provider] - 1-2 days
[2024-11-02 12:25] VITALS: BP 104/66; PULSE 82
== END 2024-11-02 12:10 | disposition home or self-care (01) ==
LOC: EEVIPCON 09:22 → EC 09:22
DX: R45.1 Restlessness and agitation (principal); Z88.1 Allergy status to other antibiotic agents; Z88.2 Allergy status to sulfonamides; Z88.8 Allergy status to other drugs, medicaments and biological substances
CPT/HCPCS: 99284